=== PATIENT | female | born 2000 | race Caucasian/White ===

== ENCOUNTER 2024-09-09 21:31 | Emergency (ER) | payer BC, SELFPAY ==
[2024-09-09 21:34] VITALS: BP 128/82; PULSE 104; RESP 18; TEMP 36.7; O2SAT 98; BMI 29.8
--- NOTE | 2024-09-09 21:41 | ED.GENADULT ---
HPI - General Adult General Chief complaint: Flank Pain Stated complaint: Right side back pain Time Seen by Provider: 09/09/24 21:38 History of Present Illness HPI narrative: pt reports has been sick for couple weeks. Tonight, mild pain in back right side. Hurts worse with coughing. Tonight getting worse. Sudafed taken at home. Pain rated 8/10 24-year-old young woman presenting to the emergency department Had some low right posterior chest pain that was worse with movement beginning a few weeks ago and then has been having increasing cough which has been worsening this pain. ?I have am freaking out? ?Google says a lot of things?. Related Data Home Medications ?Medication ?Instructions ?Recorded ?Confirmed bupropion HCl 150 mg 24 hr tablet, 150 mg PO QAM 01/19/24 02/11/24 extended release citalopram 40 mg tablet 40 mg PO DAILY 01/19/24 02/11/24 propranolol 120 mg capsule,24 120 mg PO DAILY 01/19/24 02/11/24 hr,extended release Previous Rx's ?Medication ?Instructions ?Recorded lidocaine HCl 2 % mucosal solution 1 applic mucous membrane QID PRN 02/11/24 (Lidocaine Viscous) pain #100 mL Allergies Allergy/AdvReac Type Severity Reaction Status Date / Time prednisone Allergy Intermediate Facial Verified 02/11/24 09:33 swelling Review of Systems Status of ROS: Reports: 6 or more systems reviewed and unremarkable except as noted in History and below Exam Narrative: Exam Narrative: Tearful. Nasopharyngeal congestion. Otherwise appears to be breathing easily. Posterior oropharyngeal cobblestoning. Lungs are clear. Extremities are well perfused without edema. Uncomfortable with palpation at the right low anterior chest but without any evidence of injury. Abdomen is soft and nontender. Heart in elevated rate and regular rhythm without murmur rub or gallop. Const: Vital Signs, click to edit/add: Vital Signs - 24 hr 09/09/24 21:34 Temperature 98.0 F Pulse Rate [Left P ulse Oximeter] 104 H Respiratory Rate 18 Blood Pressure [Ri ght Upper Arm] 128/82 Pulse Oximetry 98 Oxygen Delivery Me thod Room Air Documenting provider has reviewed patient's vital signs: yes Course Vital Signs Vital signs: Initial Vital Signs Temperature 98.0 F 09/09/24 21:34 Temperature Source Temporal Artery Scan 09/09/24 21:34 Pulse Rate 104 H 09/09/24 21:34 Pulse Rhythm Regular 09/09/24 21:34 Respiratory Rate 18 09/09/24 21:34 Blood Pressure 128/82 09/09/24 21:34 Blood Pressure Mean 97 09/09/24 21:34 Blood Pressure Position Sitting 09/09/24 21:34 Pulse Oximetry 98 09/09/24 21:34 Oxygen Delivery Method Room Air 09/09/24 21:34 Vital Signs Temperature 98.0 F 09/09/24 21:34 Pulse Rate 104 H 09/09/24 21:34 Respiratory Rate 18 09/09/24 21:34 Blood Pressure 128/82 09/09/24 21:34 Pulse Oximetry 98 09/09/24 21:34 Oxygen Delivery Method Room Air 09/09/24 21:34 Temperature 98.0 F 09/09/24 21:34 Pulse Rate 104 H 09/09/24 21:34 Respiratory Rate 18 09/09/24 21:34 Blood Pressure 128/82 09/09/24 21:34 Pulse Oximetry 98 09/09/24 21:34 Oxygen Delivery Method Room Air 09/09/24 21:34 Medications Administered Medications: Discontinued Medications Generic Name Dose Route Start Last Admin Trade Name Freq PRN Reason Stop Dose Admin Lidocaine 1 patch 09/09/24 21:47 09/09/24 21:59 Lidocaine 5% Patch TRANSDERMA 09/09/24 21:48 1 patch ONCE ONE Administration Protocol Lorazepam 1 mg 09/09/24 21:47 09/09/24 21:59 Lorazepam 1 Mg Tablet PO 09/09/24 21:48 1 mg ONCE ONE Administration Medical Decision Making [facility] Narrative Medical decision making narrative: Anxiety really seems to be compounding apparent discomfort. Unlikely rib fracture. May have been a viral prodrome contributing to costochondritis. Has been worse since coughing some may have some intercostal strain as well. Will check for potential pneumonia as well as pneumothorax the chest x-ray. Hopefully this can be reassuring. Offering of singular dose of lorazepam for what appears to be flare of anxiety as well. Could also place lidocaine patch as a trial. Two-view chest x-ray reviewed by me looks to be WNL. No infiltrate. Normal cardiac silhouette. No apparent displaced rib fractures. Pneumothorax. Overall improved and stable over time in the emergency department. Medical Records Medical records reviewed: Yes I reviewed the patient's medical records Discharge Plan Discharge Clinical Impression: Chest wall pain, Anxiety, URI (upper respiratory infection) Additional Instructions: I am reassured somewhat by the reproducibility of your pain on physical exam. This would seem to indicate some costochondritis or chest wall strain; certainly exacerbated by coughing. You do have evidence of postnasal drip and this is likely contributing to your cough. I would continue with pseudoephedrine for drying/decongestion. I like the 12 hour formulation. This medicine can make you feel little bit on edge though and maybe amplify anxiety in some people. Consider sleeping under the mist of cool mist humidifier. For your chest pain at this point, I would take 600 mg of ibuprofen with a little bit of food 3 times daily over the next 4-5 days. Alternative to the ibuprofen would be 375 mg of naproxen twice daily over the same time period. Follow-up if not improved in a week. Be seen sooner for marked increase in chest pain particularly associated with breathing, associated fever, increasing shortness of breath. If this lidocaine patch is helpful, you can buy more [id number]. I will call you if Radiology has anything more to say about your x-ray. Activity Level: No Restrictions Discharge Diet: Regular Prescriptions: No Action bupropion HCl 150 mg tablet extended release 24 hr 150 mg PO QAM propranolol 120 mg capsule,extended release 24 hr 120 mg PO DAILY citalopram 40 mg tablet 40 mg PO DAILY lidocaine HCl [Lidocaine Viscous] 2 % solution 1 applic mucous membrane QID PRN (Reason: pain) Qty: 100 0RF Follow Up/Referrals: Provider,Not a Local [Primary Care Provider] - Stand Alone Forms: [facility] Info Instructions
--- NOTE | 2024-09-09 21:47 | CRLHL7_ITS ---
For Patients: As a result of the Century Cures Act, medical imaging exams and procedure reports are released immediately into your electronic medical record. You may view this report before your referring provider. If you have questions, please contact your health care provider. INDICATION: Posterior lateral right low chest pain, cough. TECHNIQUE: Chest 2 views. COMPARISON: None. FINDINGS: Cardiovascular and mediastinum: Heart size and vasculature are normal in caliber and appearance. Lungs and pleural spaces: Lungs are clear. No sign of infiltrate or mass. No sign of pleural effusion. No pneumothorax. Bones and soft tissues: No significant findings. IMPRESSION: No acute or significant findings. Dictated by Jak Jolley MD @ 09/09/2024 11:12:32 PM (Electronically Signed)
--- OUTSIDE RECORDS SUMMARY | 2024-09-09 21:55 | XMS_ITS | Encounter Summary ---
Author Organization [place] Address [facility] [place] [address] Care Team Providers Care Wellness Guide Name Role Phone Josephine Tompkins PA-C Primary Care Provider [phone] Josephine Tompkins PA-C Unavailable Josephine Tompkins PA-C Unavailable Mercedes Bautista PA-C Unavailable Encounter Details Date Type Department Care Team (Late st Contact Info) Description 08/24/2020 MyC Medical Advice [address] [place] [phone] Josephine Tompkins PA-C [address] [address] [place] [id number] Social History Tobacco Use Types Packs/Day Years Used Date Smoking Tobacco: Never Smokeless Tobacco: Never Alcohol Use Standard Drinks/Week Comments No 0 (1 standard drink = 0.6 oz pur e alcohol) AUDIT-C Answer Date Recorded Frequency of Alcohol Consumption Never 11/24/2018 Average Number of Drinks Not on file 019 Frequency of Binge Drinking Not on file 01/2019 PHQ-2 Answer Date Recorded PHQ-2 Score 1 02/08/2020 Sex and Gender Information Value Date Recorded Sex Assigned at Female 05/26/2022 4:21 PM CDT Gender Identity Female 05/26/2022 4:21 PM CDT Sexual Orientation Not on file documented as of this encounter Plan of Treatment Not on file documented as of this encounter Visit Diagnoses Not on filedocumented in this encounter Additional Health Concerns Assessment Noted Time PHQ-9 Depression Total Score: 10 02/07/2 020 11:08 AM CDT documented as of this encounter Care Teams Wellness Guide Relationship Specialty Start Date End Date Josephine Tompkins PA-C PCP - General Physician Telecasting Engineer 11/24/18 Josephine Tompkins PA-C [address] [place] [id number] Assigned PCP 11/03/18 05/24/21 Josephine Tompkins PA-C [address] [place] [address] Assigned PCP 05/25/21 02/11/24 Mercedes Bautista PA-C [address] [place] [address] Assigned PCP 02/12/24 documented as of this encounter
--- OUTSIDE RECORDS SUMMARY | 2024-09-09 21:55 | XMS_ITS | Encounter Summary ---
Author Organization [place] Address [facility] [place] [address] Care Team Providers Care Bit Sander Name Role Phone Josephine Tompkins PA-C Primary Care Provider [phone] Josephine Tompkins PA-C Unavailable [phone] Josephine Tompkins PA-C Unavailable [phone] Mercedes Bautista PA-C Unavailable Encounter Details Date Type Department Care Team (Late st Contact Info) Description 09/30/2020 MyC Medical Advice [address] [place] [phone] Josephine Tompkins PA-C [address] [place] [id number] Social History Tobacco Use Types Packs/Day Years [...] on file documented as of this encounter Miscellaneous Notes * Telephone Encounter - Redd Mendoza RN - 09/30/2020 2:48 PM CST Responded via [employer]. JOSE DAVID Verma, RN, PHN REPAIRER documented in this encounter Plan of Treatment Not on file documented as of this encounter Visit Diagnoses Not on filedocumented in this encounter Additional Health Concerns Assessment Noted Time PHQ-9 Depression Total Score: 9 08/30/20 20 7:03 AM CDT documented as of this encounter Care Teams Bit Sander Relationship Specialty Start Date End Date Josephine Tompkins PA-C PCP - General Physician Associate Pathologist 11/24/18 Josephine Tompkins PA-C [address] [place] [address] Assigned PCP 11/03/18 05/24/21 Josephine Tompkins PA-C [address] [place] [address] Assigned PCP 05/25/21 02/11/24 Mercedes Bautista PA-C [address] [place] [address] Assigned PCP 02/12/24 documented as of this encounter
--- OUTSIDE RECORDS SUMMARY | 2024-09-09 21:55 | XMS_ITS | Encounter Summary ---
Author Organization [place] Address [facility] [place] [address] Care Team Providers Care Departmental Buyer Name Role Phone Josephine Tompkins PA-C Primary Care Provider [phone] Josephine Tompkins PA-C Unavailable [phone] Mercedes Bautista PA-C Unavailable Reason for Visit * Reason Onset Date Comments MyChart Communication 12/01/2021 Encounter Details Date Type Department Care Team (Late st Contact Info) Description 12/01/2021 MyC Medical Advice [address] [phone] Josephine Tompkins PA-C [address] [facility] [place] [id number] MyChart Communication Social History Tobacco Use Types Packs/Day Years [...] PHQ-2 Answer Date Recorded PHQ-2 Score 1 05/15/2021 Sex and Gender Information Value Date Recorded Sex Assigned at Female 05/26/2022 4:21 PM CDT Gender Identity Female 05/26/2022 4:21 PM CDT Sexual Orientation Not on file documented as of this encounter Plan of Treatment Not on file documented as of this encounter Visit Diagnoses Diagnosis Yeast infection of the vagina- Primary Candidiasis of vulva and vagina documented in this encounter Additional Health Concerns Assessment Noted Time PHQ-9 Depression Total Score: 4 05/15/20 21 5:39 PM CDT documented as of this encounter Care Teams Departmental Buyer Relationship Specialty Start Date End Date Josephine Tompkins PA-C PCP - General Physician Sweeper Cleaner Industrial 11/24/18 Josephine Tompkins PA-C [address] [facility] [place] [address] Assigned PCP 05/25/21 02/11/24 Mercedes Bautista PA-C [address] [place] [address] Assigned PCP 02/12/24 documented as of this encounter
--- OUTSIDE RECORDS SUMMARY | 2024-09-09 21:55 | XMS_ITS | Encounter Summary ---
Author Organization [place] Address [facility] [place] [address] Care Team Providers Care Street Sweeper Operator Name Role Phone Josephine Tompkins PA-C Primary Care Provider [phone] Josephine Tompkins PA-C Unavailable [phone] Mercedes Bautista PA-C Unavailable Reason for Visit * Reason Onset Date Comments Refill Request 10/26/2023 Encounter Details Date Type Department Care Team (Late st Contact Info) Description 10/26/2023 MyC Refill [address] [phone] Josephine Tompkins PALinoC [address] [facility] [place] [id number] Refill Request Social History Tobacco Use Types Packs/Day Years Used Date Smoking Tobacco: Never Smokeless Tobacco: Never Alcohol Use Standard Drinks/Week Comments No 0 (1 standard drink = 0.6 oz pur e alcohol) AUDIT-C Answer Date Recorded Frequency of Alcohol Consumption Never 11/24/2018 Average Number of Drinks Not on file 019 Frequency of Binge Drinking Not on file 01/2019 PHQ-2 Answer Date Recorded PHQ-2 Score 4 06/23/2023 Adolescent Education Answer Date Record ed Getting School Help Needed Not on file 08/13 Sex and Gender Information Value Date Recorded Sex Assigned at Female 05/26/2022 4:21 PM CDT Gender Identity Female 05/26/2022 4:21 PM CDT Sexual Orientation Not on file documented as of this encounter Plan of Treatment Not on file documented as of this encounter Visit Diagnoses Diagnosis Other migraine without status migrainosus, not intractable JAMESON (generalized anxiety disorder) Generalized anxiety disorder documented in this encounter Additional Health Concerns Assessment Noted Time PHQ-9 Depression Total Score: 11 023 2:56 PM CDT documented as of this encounter Care Teams Street Sweeper Operator Relationship Specialty Start Date End Date Josephine Tompkins PA-C PCP - General Physician Certified Social Workers In Health Care 11/24/18 Josephine Tompkins PA-C [address] [facility] [place] [address] Assigned PCP 05/25/21 02/11/24 Mercedes Bautista PA-C [address] [place] [address] Assigned PCP 02/12/24 documented as of this encounter
--- OUTSIDE RECORDS SUMMARY | 2024-09-09 21:55 | XMS_ITS | Encounter Summary ---
Author Organization [place] Address [facility] [place] [address] Care Team Providers Care Licensed Sales Producer Name Role Phone Josephine Tompkins PA-C Primary Care Provider Josephine Tompkins PA-C Unavailable [phone] Josephine Tompkins PA-C Unavailable Mercedes Bautista PA-C Unavailable Encounter Details Date Type Department Care Team (Late st Contact Info) Description 10/16/2019 [facility] [place] [address] [phone] Josephine Tompkins PA-C [address] [facility] [address] [place] [id number] Social History Tobacco Use Types Packs/Day Years Used Date Smoking Tobacco: Never Smokeless Tobacco: Never Alcohol Use Standard Drinks/Week Comments No 0 (1 standard drink = 0.6 oz pur e alcohol) AUDIT-C Answer Date Recorded Frequency of Alcohol Consumption Never 11/24/2018 Average Number of Drinks Not on file 019 Frequency of Binge Drinking Not on file 01/2019 Sex and Gender Information Value Date Recorded Sex Assigned at Female 05/26/2022 4:21 PM CDT Gender Identity Female 05/26/2022 4:21 PM CDT Sexual Orientation Not on file documented as of this encounter Plan of Treatment Not on file documented as of this encounter Visit Diagnoses Not on filedocumented in this encounter Additional Health Concerns Assessment Noted Time PHQ-9 Depression Total Score: 4 04/03/20 19 12:02 PM CDT documented as of this encounter Care Teams Licensed Sales Producer Relationship Specialty Start Date End Date Josephine Tompkins PA-C PCP - General Physician Glazier Supervisor 11/24/18 Josephine Tompkins PA-C [address] [facility] [place] [address] Assigned PCP 11/03/18 05/24/21 Josephine Tompkins PA-C [address] [facility] [place] [address] Assigned PCP 05/25/21 02/11/24 Mercedes Bautista PA-C [address] [place] [address] Assigned PCP 02/12/24 documented as of this encounter
--- OUTSIDE RECORDS SUMMARY | 2024-09-09 21:55 | XMS_ITS | Referral Summary ---
Author Organization [place] Address [address] [place] [address] Care Team Providers Care Regional Clinical Research Associate Name Role Phone Louisa Tompkins PA-C Primary Care Provider [phone] Mercedes Bautista PA-C Unavailable Encounters Date Type Department Care Team Description 09/06/2024 Telephone [facility] [address] 3rd [place] [address] None Appointment (Online Appointment Request ) from Last 3 Months Allergies Active Allergy Reactions Criticality Noted Date Comments Banana 04/03/2019 Stomach pain Fluoxetine Other (See Comments) High 09/28/2017 Other reaction(s): Throat Swelling/Closing swelling Rash and breathing Medications Medication Sig Dispensed Refills Start Date End Date Status citalopram (CELEXA) 40 MG tabletIndications:JAMESON (generalized anxiety disorder) Take 1 tablet (40 mg) by mouth daily 90 tablet 3 12/01/2023 Active buPROPion (WELLBUTRIN XL) 150 MG 24 hr tabletIndications:JAMESON (generalized anxiety disorder),Moderate episode of recurrent major depressive disorder (H) Take 1 tablet (150 mg) by mouth every morning 90 tablet 3 12/01/2023 Active propranolol ER (INDERAL LA) 120 MG 24 hr capsuleIndications:Ot her migraine without status migrainosus, not intractable Take 1 capsule (120 mg) by mouth daily 90 capsule 3 12/01/2023 Active Active Problems Problem Noted Date Diagnosed Date Moderate persistent reactive airway disease without complication 09/27/2018 JAMESON (generalized anxiety disorder) 07/12/2018 Moderate episode of recurrent major depressive d isorder 07/12/2018 Migraine without aura and wi th status migrainosus, not intractable 09/26/2017 Dysmenorrhea 05/12/2016 Immunizations Name Administration Dates Next Due Comvax (HIB/HepB) 07/21/2000,1999,09/19/19 99 DTAP (<7y) 07/14/2011, 4,07/21/2000,01/15/2000, 1999,1999 DTaP, Unspecified 07/14/2011 HIB, Unspecified 07/21/2000,1999, 9 HepB, Unspecified 07/21/2000,1999,09/19/19 99 MMR 06/02/2004,07/21/2000 Meningococcal ACWY (Menactra??) 11/24/2018,07/14 Meningococcal ACWY (Menveo??) 07/14/2011 Meningococcal,unspecified 07/14/2011 Pneumo Conj 13-V (2010&after) 08/17/2001, 001 Pneumococcal (PCV 7) 08/17/2001,01/12/2001 Polio, Unspecified 06/02/2004,01/15/2000, 999,1999 Poliovirus, inactivated (IPV) 06/02/2004, 000,1999,1999 TDAP (Adacel,Boostrix) 08/06/2022 TDAP Vaccine (Adacel) 07/14/2011 Varicella 07/14/2011,01/12/2001 Social History Tobacco Use Types Packs/Day Years Used Date Smoking Tobacco: Never Smokeless Tobacco: Never Tobacco Cessation:Counseling Given: Not Answered Alcohol Use Standard Drinks/Week Comments No 0 (1 standard drink = 0.6 oz pur e alcohol) Social Connection and Isolat ion Panel [NHANES] Answer Date Recorded In a typical week, how many times do you talk on the phone with family, friends, or neighbors? More than three times a week 12/01/2023 How often do you get togethe r with friends or relatives? Twice a week 12/01/2023 How often do you attend chur ch or jew services? Never 12/01/2023 Do you belong to any clubs o r organizations such as hoahaoism groups, unions, fraternal or athletic groups, or school groups? No 12/01/2023 How often do you attend meet ings of the clubs or organizations you belong to? Patient declined 12/01/2023 Are you , , di vorced, , never , or living with a partner? Living with partner 12/01/2023 AUDIT-C Answer Date Recorded Q1: How often do you have a drink containing alc ohol? Monthly or less 12/01/2023 Q2: How many drinks containi ng alcohol do you have on a typical day when you are drinking? 1 or 2 12/01/2023 Q3: How often do you have si x or more drinks on one occasion? Never 12/01/2023 PHQ-2 Answer Date Recorded PHQ-2 Score 4 12/01/2023 [employer] - Occupational Stress Questionnaire Answer Date Recorded Do you feel stress - tense, restless, nervous, or anxious, or unable to sleep at night because your mind is troubled all the time - these days? Very much 12/01/2023 Exercise Vital Sign Answer Date Recorde d On average, how many days pe r week do you engage in moderate to strenuous exercise (like a brisk walk)? 1 day Minutes of Exercise per Session Not on file 12/01/2023 Adolescent Education Answer Date Record ed Getting School Help Needed Not on file 08/13 Food Insecurity Answer Date Recorded Within the past 12 months, d id you worry that your food would run out before you got money to buy more? Yes 12/01/2023 Within the past 12 months, d id the food you bought just not last and you didn? t have money to get more? Yes 12/01/2023 Housing Stability Answer Date Recorded Do you have housing? (Housin g is defined as stable permanent housing and does not include staying ouside in a car, in a tent, in an abandoned building, in an overnight assisted, or couch-surfing.) Yes 12/01/2023 Are you worried about losing your housing? No 12/01/2023 Financial Resource Strain Answer Date R ecorded Within the past 12 months, h ave you or your family members you live with been unable to get utilities (heat, electricity) when it was really needed? No 12/01/2023 Transportation Needs Answer Date Record ed Within the past 12 months, h as lack of transportation kept you from medical appointments, getting your medicines, non-medical meetings or appointments, work, or from getting things that you need? No 12/01/2023 Interpersonal Safety Answer Date Record ed Do you feel physically and e motionally safe where you currently live? Yes 12/01/2023 Within the past 12 months, h ave you been hit, slapped, kicked or otherwise physically hurt by someone? No 12/01/2023 Within the past 12 months, h ave you been humiliated or emotionally abused in other ways by your partner or ex-partner? No 12/01/2023 Sex and Gender Information Value Date Recorded Sex Assigned at Female 05/26/2022 4:21 PM CDT Gender Identity Female 05/26/2022 4:21 PM CDT Sexual Orientation Not on file Last Filed Vital Signs Vital Sign Reading Time Taken Comments Blood Pressure 117/78 12/01/2023 2:56 PM BRASS AND WIND INSTRUMENT REPAIRER Pulse 75 12/01/2023 2:56 PM BRASS AND WIND INSTRUMENT REPAIRER Temperature 36.9 ??C (98.5 ??F) 12/01/2023 2:56 PM CS T Respiratory Rate 14 12/01/2023 2:56 PM BRASS AND WIND INSTRUMENT REPAIRER Oxygen Saturation 97% 12/01/2023 2:56 PM BRASS AND WIND INSTRUMENT REPAIRER Inhaled Oxygen Concentration - - Weight 88.5 kg (195 lb) 12/01/2023 2:56 PM BRASS AND WIND INSTRUMENT REPAIRER Height 171.5 cm (5' 7.5) 12/01/2023 2:56 PM BRASS AND WIND INSTRUMENT REPAIRER Body Mass Index 30.09 12/01/2023 2:56 PM BRASS AND WIND INSTRUMENT REPAIRER Plan of Treatment Not on file Procedures Procedure Name Priority Date/Time Associated Diagnosis Comments PAP IMAGED THIN LAYER SCREEN Routine 05/15/2021 5:34 PM CDT Screening for malignant neoplasm of cervix CHLAMYDIA TRACHOMATIS PCR Routine 05/15/2021 5:30 PM CDT Screen for STD (sexually transmitted disease) from Last 3 Months or Most Recently Relevant to Health Maintenance Results * Pap imaged thin layer screen only - recommended age 21 - 24 years (05/15/2021 5:34 PM CDT) PAP NAY [place] Report Patient Name: LUKE FRANKS MR#: [id number] Specimen #: [id number] Collected: 05/15/2021 Received: 05/16/2021 Reported: 05/19/2021 11:30 Ordering Phy(s): LOUISA TOMPKINS For improved result formatting, select 'View Enhanced Report Format' under Linked Documents section. SPECIMEN/STAIN PROCESS: Pap imaged thin layer prep screening (Surepath, FocalPoint with guided screening) ? Pap-Cyto x 1 SOURCE: Cervical, endocervical Pap imaged thin layer prep screening (Surepath, FocalPoint with guided screening) SPECIMEN ADEQUACY: Satisfactory for evaluation. -Transformation zone component absent. CYTOLOGIC INTERPRETATION: Negative for intraepithelial lesion or malignancy Electronically signed out by: RONNY Montoya (ASCP) CLINICAL HISTORY: LMP: 05/01/2021 Papanicolaou Test Limitations: ??Cervical cytology is a screening test with limited sensitivity; regular screening is critical for cancer prevention; Pap tests are primarily effective for the diagnosis/preventi on of squamous cell carcinoma, not adenocarcinomas or other cancers. COLLECTION SITE: Client: ??[facility] Location: [facility] (P) The technical component of this [facility], with the professional component performed at [facility], [address] [place] [phone] ([phone]) MARJAN Cytology 05/15/2021 5:34 PM CDT 05/16/2021 8:43 AM CDT Louisa Tompkins PA-C LAB - [facility] SPECIMEN COPATH * CHLAMYDIA TRACHOMATIS PCR (05/15/2021 5:30 PM CDT) Specimen Description Cervix 05/15/2021 5:52 PM CDT [facility] Chlamydia Trachomatis PCR Negative NEG^Negat radhames 05/16/2021 10:20 AM CDT [facility] Comment: Negative for C. trachomatis rRNA by sandblast or shotblast equipment tender mediated amplification. A negative result by sandblast or shotblast equipment tender mediated amplification does not preclude the presence of C. trachomatis infection because results are dependent on proper and adequate collection, absence of inhibitors, and sufficient rRNA to be detected. Specimen from uterine cervix (specimen) 05/15/2021 5:30 PM CDT 05/15/2021 5:52 PM CDT Louisa Tompkins PA-C LAB - MICRO GENERAL ORDERABLES Performing Organization Address City/[facility]/ZIP Co de Phone Number [facility] [address] [place] [address], [address] [place] [address] [phone] from Last 3 Months or Most Recently Relevant to Health Maintenance Care Teams Regional Clinical Research Associate Relationship Specialty Start Date End Date Louisa Tompkins PA-C PCP - General Physician Spiral Winder 11/24/18 Mercedes Bautista PA-C [address] [place] [address] Assigned PCP 02/12/24
--- OUTSIDE RECORDS SUMMARY | 2024-09-09 21:55 | XMS_ITS | Encounter Summary ---
Author Organization [place] Address [facility] [place] [address] Care Team Providers Care Electric Power Superintendent Name Role Phone Josephine Tompkins PA-C Primary Care Provider Josephine Tompkins PA-C Unavailable Josephine Tompkins PA-C Unavailable Mercedes Bautista PA-C Unavailable Encounter Details Date Type Department Care Team (Late st Contact Info) Description 05/08/2020 [facility] Medical Advice [address] [address] Josephine Tompkins PALinoC [address] [facility] [address] [place] [id number] Social History Tobacco Use Types Packs/Day Years [...] Noted Time PHQ-9 Depression Total Score: 10 02/07/ 020 11:08 AM CDT documented as of this encounter Care Teams Electric Power Superintendent Relationship Specialty Start Date End Date Josephine Tompkins PA-C PCP - General Physician Dry Clipper Tender 11/24/18 Josephine Tompkins PA-C [address] [facility] [place] [address] Assigned PCP 11/03/18 05/24/21 Josephine Tompkins PA-C [address] [facility] [place] [address] Assigned PCP 05/25/21 02/11/24 Mercedes Bautista PA-C [address] [place] [address] Assigned PCP 02/12/24 documented as of this encounter
--- OUTSIDE RECORDS SUMMARY | 2024-09-09 21:55 | XMS_ITS | Encounter Summary ---
Author Organization [place] Address [facility] [place] [address] Care Team Providers Care Calculus Tutor Name Role Phone Josephine Tompkins PA-C Primary Care Provider Josephine Tompkins PA-C Unavailable Josephine Tompkins PA-C Unavailable [phone] Mercedes Bautista PA-C Unavailable Encounter Details Date Type Department Care Team (Late st Contact Info) Description 10/01/2019 [facility] Medical Advice [address] [address] Josephine Tompkins PA-C [address] [facility] [place] [phone] JAMESON (generalized anxiety disorder) Social History Tobacco Use Types Packs/Day Years [...] as of this encounter Visit Diagnoses Diagnosis JAMESON (generalized anxiety disorder) Generalized anxiety disorder documented in this encounter Additional Health Concerns Assessment Noted Time PHQ-9 Depression Total Score: 4 04/03/20 19 12:02 PM CDT documented as of this encounter Care Teams Calculus Tutor Relationship Specialty Start Date End Date Josephine Tompkins PA-C PCP - General Physician Piercing Machine Operator 11/24/18 Josephine Tompkins PA-C [address] [place], [place] [id number] Assigned PCP 11/03/18 05/24/21 Josephine Tompkins PA-C [address] [facility] [place] [address] Assigned PCP 05/25/21 02/11/24 Mercedes Bautista PA-C [address] [place] [address] Assigned PCP 02/12/24 documented as of this encounter
--- OUTSIDE RECORDS SUMMARY | 2024-09-09 21:55 | XMS_ITS | Encounter Summary ---
Author Organization [place] Address [facility] [place] [address] Care Team Providers Care Environmental Studies Professor Name Role Phone Josephine Tompkins PA-C Primary Care Provider Josepihne Tompkins PA-C Unavailable Josephine Tompkins PA-C Unavailable [phone] Mercedes Bautista PA-C Unavailable Encounter Details Date Type Department Care Team (Late st Contact Info) Description 09/30/2020 [facility] Medical Advice [address] [place] [phone] Josephine Tompkins PA-C [address] [facility] [address] [place] [phone] Yeast infection of the vagina (Primary Dx) Social History Tobacco Use Types Packs/Day Years [...] documented as of this encounter Care Teams Environmental Studies Professor Relationship Specialty Start Date End Date Josephine Tompkins PA-C PCP - General Physician Clarifier Operator 11/24/18 Josephine Tompkins PA-C [address] [facility] [place] [address] Assigned PCP 11/03/18 05/24/21 Josephine Tompkins PA-C [address] [facility] [place] [address] Assigned PCP 05/25/21 02/11/24 Mercedes Bautista PA-C [address] [place] [address] Assigned PCP 02/12/24 documented as of this encounter
--- OUTSIDE RECORDS SUMMARY | 2024-09-09 21:55 | XMS_ITS | Encounter Summary ---
Author Organization [place] Address [facility] [place] [address] Care Team Providers Care Machined Parts Metal Sprayer Name Role Phone Josephine Tompkins PA-C Primary Care Provider Josephine Tompkins PA-C Unavailable Mercedes Bautista PA-C Unavailable Encounter Details Date Type Department Care Team (Late st Contact Info) Description 09/19/2021 [facility] Medical Advice [address] [address] Josephine Tompkins PA-C [address] [facility] [place] [phone] Social History Tobacco Use Types Packs/Day Years [...] documented as of this encounter Care Teams Machined Parts Metal Sprayer Relationship Specialty Start Date End Date Josephine Tompkins PA-C PCP - General Physician Egg Processor 11/24/18 Josephine Tompkins PA-C [address] [facility] [place] [address] Assigned PCP 05/25/21 02/11/24 Mercedes Bautista PA-C [address] [place] [address] Assigned PCP 02/12/24 documented as of this encounter
--- OUTSIDE RECORDS SUMMARY | 2024-09-09 21:55 | XMS_ITS | Encounter Summary ---
Author Organization [place] Address [facility]0 [place] [address] Care Team Providers Care Paying Teller Name Role Phone Josephine Tompkins PA-C Primary Care Provider Josephine Tompkins PA-C Unavailable Mercedes Bautista PA-C Unavailable Encounter Details Date Type Department Care Team (Late st Contact Info) Description 02/19/2022 My[facility] Medical Advice [address] [address] Josephine Tompkins PA-C 9 [facility] [place] [phone] Social History Tobacco Use Types Packs/Day Years [...] documented as of this encounter Care Teams Paying Teller Relationship Specialty Start Date End Date Josephine Tompkins PA-C PCP - General Physician Crib Pad Maker 11/24/18 Josephine Topmkins PA-C [address] [facility] [place] [address] Assigned PCP 05/25/21 02/11/24 Mercedes Bautista PA-C [address] [place] [address] Assigned PCP 02/12/24 documented as of this encounter
--- OUTSIDE RECORDS SUMMARY | 2024-09-09 21:55 | XMS_ITS | Encounter Summary ---
Author Organization [place] Address Replaced by [facility] [place] [address] Care Team Providers Care Filling Separator Name Role Phone Josephine Tompkins PA-C Primary Care Provider Josephine Tompkins PA-C Unavailable [phone] Josephine Tompkins PA-C Unavailable Mercedes Bautista PA-C Unavailable Encounter Details Date Type Department Care Team (Late st Contact Info) Description 11/05/2019 [facility] [place] [address] [address] Josephine Tompkins PA-C [address] [facility] [address] [place] [phone] Social History Tobacco Use Types Packs/Day Years [...] documented as of this encounter Care Teams Filling Separator Relationship Specialty Start Date End Date Josephine Tompkins PA-C PCP - General Physician Panel Installer 11/24/18 Josephine Tompkins PA-C [address] [facility] [place] [address] Assigned PCP 11/03/18 05/24/21 Josephine Tompkins PA-C [address] [facility] [place] [address] Assigned PCP 05/25/21 02/11/24 Mercedes Bautista PA-C [address] [place] [address] Assigned PCP 02/12/24 documented as of this encounter
--- OUTSIDE RECORDS SUMMARY | 2024-09-09 21:55 | XMS_ITS | Encounter Summary ---
Author Organization [place] Address [facility] [place] [place] [address] Care Team Providers Care Insurance Processing Clerk Name Role Phone Josephine Tompkins PA-C Primary Care Provider Josephine Tompkins PA-C Unavailable Mercedes Bautista PA-C Unavailable Encounter Details Date Type Department Care Team (Late st Contact Info) Description 05/06/2023 My[facility] Medical Advice [address] [address] Josephine Tompkins PA-C 9 [facility] [place] [phone] Social History Tobacco Use Types Packs/Day Years Used Date Smoking Tobacco: Never Smokeless Tobacco: Never Alcohol Use Standard Drinks/Week Comments No 0 (1 standard drink = 0.6 oz pur e alcohol) AUDIT-C Answer Date Recorded Frequency of Alcohol Consumption Never 11/24/2018 Average Number of Drinks Not on file 019 Frequency of Binge Drinking Not on file 01/2019 PHQ-2 Answer Date Recorded PHQ-2 Score 2 12/08/2022 Sex and Gender Information Value Date Recorded Sex Assigned at Female 05/26/2022 4:21 PM CDT Gender Identity Female 05/26/2022 4:21 PM CDT Sexual Orientation Not on file documented as of this encounter Plan of Treatment Not on file documented as of this encounter Visit Diagnoses Not on filedocumented in this encounter Additional Health Concerns Assessment Noted Time PHQ-9 Depression Total Score: 10 023 1:15 PM RN SUPPORT SERVICES documented as of this encounter Care Teams Insurance Processing Clerk Relationship Specialty Start Date End Date Josephine Tompkins PA-C PCP - General Physician Glazier Metal Furniture 11/24/18 Josephine Tompkins PA-C [address] [facility] [place] [address] Assigned PCP 05/25/21 02/11/24 Mercedes Bautista PA-C [address] [place] [address] Assigned PCP 02/12/24 documented as of this encounter
--- OUTSIDE RECORDS SUMMARY | 2024-09-09 21:55 | XMS_ITS | Encounter Summary ---
Author Organization [place] Address [facility]0 [facility] [place] [address] Care Team Providers Care Senior Application Security Consultant Name Role Phone Josephine Tompkins PA-C Primary Care Provider [phone] Josephine Tompkins PA-C Unavailable Mercedes Bautista PA-C Unavailable Encounter Details Date Type Department Care Team (Late st Contact Info) Description 09/07/2021 [facility] Medical Advice [address] [address] Josephine Tompkins PA-C 9 [facility] [place] [phone] Social History Tobacco Use Types Packs/Day Years [...] documented as of this encounter Care Teams Senior Application Security Consultant Relationship Specialty Start Date End Date Josephine Tompkins PA-C PCP - General Physician Bar Catcher 11/24/18 Josephine Tompkins PA-C [address] [facility] [place] [address] Assigned PCP 05/25/21 02/11/24 Mercedes Bautista PA-C [address] [place] [address] Assigned PCP 02/12/24 documented as of this encounter
--- OUTSIDE RECORDS SUMMARY | 2024-09-09 21:55 | XMS_ITS | Encounter Summary ---
Author Organization [place] Address [facility] [place] [address] Care Team Providers Care Galley Worker Name Role Phone Josephine Tompkins PA-C Primary Care Provider [phone] Josephine Tompkins PA-C Unavailable Mercedes Bautista PA-C Unavailable Reason for Visit * Reason Onset Date Comments MyChart Communication 10/02/2021 Encounter Details Date Type Department Care Team (Late st Contact Info) Description 10/02/2021 [facility] Medical Advice [address] [phone] Josephine Tompkins PA-C 9 [facility] [place] [phone] MyChart Communication Social History Tobacco Use Types [...] documented as of this encounter Care Teams Galley Worker Relationship Specialty Start Date End Date Josephine Tompkins PA-C PCP - General Physician Staff Radiographer 11/24/18 Josephine Tompkins PA-C [address] [facility] [place] [address] Assigned PCP 05/25/21 02/11/24 Mercedes Bautista PA-C [address] [place] [address] Assigned PCP 02/12/24 documented as of this encounter
--- OUTSIDE RECORDS SUMMARY | 2024-09-09 21:55 | XMS_ITS | Encounter Summary ---
Author Organization [place] Address [facility]0 [facility] [place] [address] Care Team Providers Care Metal Casket Assembler Name Role Phone Josephine Tompkins PA-C Primary Care Provider [phone] Josephine Tompkins PA-C Unavailable [phone] Mercedes Bautista PA-C Unavailable Encounter Details Date Type Department Care Team (Late st Contact Info) Description 10/22/2023 [facility] [place] [address] [address] Kalee Robert, [facility] Social History Tobacco Use Types Packs/Day Years [...] documented as of this encounter Care Teams Metal Casket Assembler Relationship Specialty Start Date End Date Josephine Tompkins PA-C PCP - General Physician Music Industry Internship 11/24/18 Josephine Tompkins PA-C [address] [facility] [place] [address] Assigned PCP 05/25/21 02/11/24 Mercedes Bautista PA-C [address] [place] [address] Assigned PCP 02/12/24 documented as of this encounter
--- OUTSIDE RECORDS SUMMARY | 2024-09-09 21:55 | XMS_ITS | Encounter Summary ---
Author Organization [place] Address [facility] [place] [address] Care Team Providers Care Rn Resource Nurse Name Role Phone Josephine Tompkins PA-C Primary Care Provider Josephine Tompkins PA-C Unavailable Mercedes Bautista PA-C Unavailable Reason for Visit * Reason Onset Date Comments MyChart Communication 06/24/2021 Symptoms Encounter Details Date Type Department Care Team (Late st Contact Info) Description 06/24/2021 My[facility] Medical Advice [address] [address] Josephine Tompkins PA-C [address] [place] [address] [place] [phone] MyChart Communication (Symptoms) Social History Tobacco Use Types Packs/Day Years [...] documented as of this encounter Care Teams Rn Resource Nurse Relationship Specialty Start Date End Date Josephine Tompkins PA-C PCP - General Physician Cookie Padder 11/24/18 Josephine Tompkins PA-C [address] [facility] [place] [address] Assigned PCP 05/25/21 02/11/24 Mercedes Bautista PA-C [address] [place] [address] Assigned PCP 02/12/24 documented as of this encounter
--- OUTSIDE RECORDS SUMMARY | 2024-09-09 21:55 | XMS_ITS | Encounter Summary ---
Author Organization [place] Address [facility] [place] [address] Care Team Providers Care Automation Operator Name Role Phone Josephine Tompkins PA-C Primary Care Provider Josephine Tompkins PA-C Unavailable [phone] Mercedes Bautista PA-C Unavailable Reason for Visit * Reason Onset Date Comments MyChart Communication 10/16/2022 Encounter Details Date Type Department Care Team (Late st Contact Info) Description 10/16/2022 MyC Medical Advice [address] [address] Josephine Tompkins PA-C 9 [facility] [place] [phone] MyChart Communication Social History Tobacco Use Types [...] PHQ-2 Answer Date Recorded PHQ-2 Score 4 08/06/2022 Sex and Gender Information Value Date Recorded Sex Assigned at Female 05/26/2022 4:21 PM CDT Gender Identity Female 05/26/2022 4:21 PM CDT Sexual Orientation Not on file documented as of this encounter Plan of Treatment Not on file documented as of this encounter Visit Diagnoses Not on filedocumented in this encounter Additional Health Concerns Assessment Noted Time PHQ-9 Depression Total Score: 12 08/06/ 022 4:40 PM CDT documented as of this encounter Care Teams Automation Operator Relationship Specialty Start Date End Date Josephine Tompkins PA-C PCP - General Physician Plaster Lather 11/24/18 Josephine Tompkins PA-C 919 [facility] [place] [address] Assigned PCP 05/25/21 02/11/24 Mercedes Bautista PA-C [address] [place] [address] Assigned PCP 02/12/24 documented as of this encounter
--- OUTSIDE RECORDS SUMMARY | 2024-09-09 21:55 | XMS_ITS | Encounter Summary ---
Author Organization [place] Address [facility] [place] [address] Care Team Providers Care Services Account Manager Name Role Phone Josephine Tompkins PA-C Primary Care Provider [phone] Josephine Tompkins PA-C Unavailable Josephine Tompkins PA-C Unavailable Mercedes Bautista PA-C Unavailable Encounter Details Date Type Department Care Team (Late st Contact Info) Description 10/08/2019 MyC Medical Advice [address] [address] Josephine Tompkins PA-C [address] [facility] [address] [place] [id number] Trichotillomania (Primary Dx); Other migraine without status migrainosus, not intractable Social History Tobacco Use Types Packs/Day Years [...] as of this encounter Visit Diagnoses Diagnosis Trichotillomania- Primary Other disorder of impulse control Other migraine without status migrainosus, not intractable documented in this encounter Additional Health Concerns Assessment Noted Time PHQ-9 Depression Total Score: 4 04/03/20 19 12:02 PM CDT documented as of this encounter Care Teams Services Account Manager Relationship Specialty Start Date End Date Josephine Tompkins PA-C PCP - General Physician License And Permit Specialist 11/24/18 Josephine Tompkins PA-C [address] [facility] [place] [address] Assigned PCP 11/03/18 05/24/21 Josephine Tompkins PA-C [address] [facility] [place] [address] Assigned PCP 05/25/21 02/11/24 Mercedes Bautista PA-C [address] [place] [address] Assigned PCP 02/12/24 documented as of this encounter
--- OUTSIDE RECORDS SUMMARY | 2024-09-09 21:55 | XMS_ITS | Clinical Summary ---
Author Organization [place] Address [facility] [place] [address] Care Team Providers Care Ammonia Nitrate Operator Name Role Phone Josephine Tompkins PA-C Primary Care Provider [phone] Mercedes Bautista PA-C Unavailable Allergies Active Allergy Reactions Criticality Noted Date [...] status migrainosus, not intractable 09/26/2017 Dysmenorrhea 05/12/2016 Encounters Date Type Department Care Team Description 09/06/2024 Telephone [facility] [address] 3rd [place] [address] None Appointment (Online Appointment Request ) from Last 3 Months Immunizations Name Administration Dates Next Due Comvax [...] often do you attend chur ch or yazidi services? Never 12/01/2023 Do you belong to any clubs o r organizations such as restorationism groups, unions, fraternal or athletic groups, or [...] Answer Date Recorded PHQ-2 Score 4 12/01/2023 [facility] - Occupational Stress [...] in an abandoned building, in an overnight chcf, or couch-surfing.) Yes 12/01/2023 Are you worried [...] Comments Blood Pressure 117/78 12/01/2023 2:56 PM MASTICATOR Pulse 75 12/01/2023 2:56 PM MASTICATOR Temperature 36.9 ??C (98.5 ??F) 12/01/2023 2:56 PM CS T Respiratory Rate 14 12/01/2023 2:56 PM MASTICATOR Oxygen Saturation 97% 12/01/2023 2:56 PM MASTICATOR Inhaled Oxygen Concentration - - Weight 88.5 kg (195 lb) 12/01/2023 2:56 PM MASTICATOR Height 171.5 cm (5' 7.5) 12/01/2023 2:56 PM MASTICATOR Body Mass Index 30.09 12/01/2023 2:56 PM MASTICATOR Plan of Treatment Health Maintenance Due Date Last Done Comments Pneumococcal Vaccine: Pediatrics (0 to 5 Years) and At-Risk Patients (6 to 64 Years) (1 of 1 - PPSV23 or PCV20) 2005 08/17/2001, 08/17/2001, 01/12/2001, Additional history exists HPV IMMUNIZATION (1 - 3-dose series) 2014 HEPATITIS C SCREENING 2017 ASTHMA ACTION PLAN 08/06/2023 08/06/2022 PAP 05/15/2024 05/15/2021 ASTHMA CONTROL TEST 05/31/2024 12/01/2023, 06/23/2023, 08/06/2022, Additional history exists PHQ-9 05/31/2024 12/01/2023, 08/0 12/2022, 12/08/2022, Additional history exists COVID-19 Vaccine ( season) 2024 INFLUENZA VACCINE (#1) 2024 9 (Declined), 11/24/2018 (Declined) ANNUAL REVIEW OF HM ORDERS 12/01/2024 12/01/2023, YEARLY PREVENTIVE VISIT 12/01/2024 12/01/19, 08/06/2022, 05/15/2021, Additional history exists ADVANCE CARE PLANNING 05/18/2026 05/18/2021, 021 DTAP/TDAP/TD IMMUNIZATION (10 - Td or Tdap) 08/06/2032 08/06/2022, 07/14/2011, 07/14/2011, Additional history exists RSV VACCINE (1 - 1-dose 75+ series) 2074 HEPATITIS B IMMUNIZATION Completed 000, 07/21/2000, 1999, Additional history exists DEPRESSION ACTION PLAN Completed 11/24/2018 HIV SCREENING Addressed 11/24/2018 (Declined) Overr idden with the intention of not completing the topic MENINGITIS IMMUNIZATION Aged Out 11/24/19, 11/24/2018, 07/14/2011, Additional history exists No longer eligible based on patient's age to complete this topic CHLAMYDIA SCREENING Discontinued 05/15/2021, 11/24/2018 (Declined) RSV MONOCLONAL ANTIBODY Aged Out No l onger eligible based on patient's age to complete this topic Procedures Procedure Name Priority Date/Time Associated Diagnosis [...] Degroot Report Patient Name: LUKE FRANKS MR#: [id number] Specimen #: [id number] Collected: 05/15/2021 Received: 05/16/2021 Reported: 05/19/2021 11:30 Ordering Phy(s): JOSEPHINE TOMPKINS For improved result formatting, select 'View [...] adenocarcinomas or other cancers. COLLECTION SITE: Client: ??[facility] Location: [facility] (P) The technical component of this testing was completed at the [facility], with the professional component performed at the [facility], [address] [place] [phone] ([phone]) MARJAN Cytology 05/15/2021 5:34 PM CDT 05/16/2021 8:43 AM CDT Josephine Tompkins PA-C LAB - [facility] SPECIMEN COPATH * CHLAMYDIA TRACHOMATIS PCR (05/15/2021 5:30 PM CDT) Specimen Description Cervix 05/15/2021 5:52 PM CDT [facility] Chlamydia Trachomatis PCR Negative NEG^Negat radhames 05/16/2021 10:20 AM CDT [facility], [facility] Comment: Negative for C. trachomatis rRNA by principal administrative clerk mediated amplification. A negative result by principal administrative clerk mediated amplification does not preclude the presence of C. trachomatis infection because results are dependent on proper and adequate collection, absence of inhibitors, and sufficient rRNA to be detected. Specimen from uterine cervix (specimen) 05/15/2021 5:30 PM CDT 05/15/2021 5:52 PM CDT Josephine Tompkins PA-C LAB - MICRO GENERAL ORDERABLES [facility], [facility] [address] [place] [address], [address] [place] [address], [facility] [phone] from Last 3 Months or Most Recently Relevant to Health Maintenance Care Teams Ammonia Nitrate Operator Relationship Specialty Start Date End Date Josephine Tompkins PA-C PCP - General Physician Petrophysicist 1/3/19 Mercedes Bautista PA-C [address] [place] [address] Assigned PCP 02/12/24
--- OUTSIDE RECORDS SUMMARY | 2024-09-09 21:55 | XMS_ITS | Encounter Summary ---
Author Organization [place] Address [facility] [place] [address] Care Team Providers Care Tray Delivery Aide Name Role Phone Josephine Tompkins PA-C Primary Care Provider Josephine Tompkins PA-C Unavailable [phone] Mercedes Bautista PA-C Unavailable Reason for Visit * Reason Onset Date Comments MyChart Communication 05/26/2022 Encounter Details Date Type Department Care Team (Late st Contact Info) Description 05/26/2022 MyC Medical Advice [address] [place] [address] [address] Josephine Tompkins PA-C 9 [facility] [place] [phone] MyChart Communication Social History Tobacco Use Types [...] documented as of this encounter Care Teams Tray Delivery Aide Relationship Specialty Start Date End Date Josephine Tompkins PA-C PCP - General Physician Technical Illustrations Map Inker 11/24/18 Josephine Tompkins PA-C 919 [facility] [place] [address] Assigned PCP 05/25/21 02/11/24 Mercedes Bautista PA-C [address] [place] [address] Assigned PCP 02/12/24 documented as of this encounter
--- OUTSIDE RECORDS SUMMARY | 2024-09-09 21:55 | XMS_ITS | Encounter Summary ---
Author Organization [place] Address [facility] [place] [address] Care Team Providers Care Black Oxide Operator Name Role Phone Josephine Tompkins PA-C Primary Care Provider Josephine Tompkins PA-C Unavailable Mercedes Bautista PA-C Unavailable Reason for Visit * Reason Onset Date Comments MyChart Communication 10/20/2021 Encounter Details Date Type Department Care Team (Late st Contact Info) Description 10/20/2021 MyC Medical Advice [address] [phone] Josephine Tompkins PA-C 9 [facility] [place] [phone] MyChart Communication Social History Tobacco Use Types [...] as of this encounter Visit Diagnoses Diagnosis Toe infection- Primary Unspecified local infection of skin and subcutaneous tissue documented in this encounter Additional Health Concerns Assessment Noted Time PHQ-9 Depression Total Score: 4 05/15/20 21 5:39 PM CDT documented as of this encounter Care Teams Black Oxide Operator Relationship Specialty Start Date End Date Josephine Tompkins PA-C PCP - General Physician Paper Maker 11/24/18 Josephine Tompkins PA-C 919 [facility] [place] [address] Assigned PCP 05/25/21 02/11/24 Mercedes Bautista PA-C [address] [place] [address] Assigned PCP 02/12/24 documented as of this encounter
--- OUTSIDE RECORDS SUMMARY | 2024-09-09 21:55 | XMS_ITS | Encounter Summary ---
Author Organization [place] Address [facility] [place] [address] Care Team Providers Care Director Emergency Name Role Phone Josephine Tompkins PA-C Primary Care Provider [phone] Josephine Tompkins PA-C Unavailable [phone] Mercedes Bautista PA-C Unavailable Encounter Details Date Type Department Care Team (Late st Contact Info) Description 12/08/2022 [facility] [address] [address] Kalee Robert, [facility] Social History Tobacco Use Types Packs/Day [...] Depression Total Score: 10 023 1:15 PM DIRECTOR REGULATORY AFFAIRS documented as of this encounter Care Teams Director Emergency Relationship Specialty Start Date End Date Josephine Tompkins PA-C PCP - General Physician Polls Or Surveys Interviewer 11/24/18 Josephine Tompkins PA-C [address] [facility] [place] [address] Assigned PCP 05/25/21 02/11/24 Mercedes Bautista PA-C [address] [place] [address] Assigned PCP 02/12/24 documented as of this encounter
--- OUTSIDE RECORDS SUMMARY | 2024-09-09 21:55 | XMS_ITS | Encounter Summary ---
Author Organization [place] Address [facility] [place] [address] Care Team Providers Care Clinical Medical Assistant Name Role Phone Josephine Tompkins PA-C Primary Care Provider Josephine Tompkins PA-C Unavailable [phone] Josephine Tompkins PA-C Unavailable Mercedes Bautista PA-C Unavailable Encounter Details Date Type Department Care Team (Late st Contact Info) Description 06/15/2020 MyC Medical Advice [address] [address] Josephine Tompkins PALinoC [address] [facility] [address] [place] [phone] JAMESON (generalized anxiety disorder) (Primary Dx) Social History Tobacco Use Types [...] encounter Visit Diagnoses Diagnosis JAMESON (generalized anxiety disorder)- Primary Generalized anxiety disorder documented in this encounter Additional Health Concerns Assessment Noted Time PHQ-9 Depression Total Score: 10 020 11:08 AM CDT documented as of this encounter Care Teams Clinical Medical Assistant Relationship Specialty Start Date End Date Josephine Tompkins PA-C PCP - General Physician Exterior Interior Specialist 11/24/18 Josephine Tompkins PA-C [address] [facility] [place] [address] Assigned PCP 11/03/18 05/24/21 Josephine Tompkins PA-C [address] [facility] [place] [address] Assigned PCP 05/25/21 02/11/24 Mercedes Bautista PA-C [address] [place] [address] Assigned PCP 02/12/24 documented as of this encounter
--- OUTSIDE RECORDS SUMMARY | 2024-09-09 21:55 | XMS_ITS | Encounter Summary ---
Author Organization [place] Address [facility] [place] [address] Care Team Providers Care Supervisor Tree Trimming Name Role Phone Josephine Tompkins PA-C Primary Care Provider [phone] Mercedes Bautista PA-C Unavailable Reason for Visit * Reason Onset Date Comments Appointment 09/06/2024 Online Appointme nt Request Encounter Details Date Type Department Care Team (Late st Contact Info) Description 09/06/2024 Telephone [facility] Neurology Clinic [address] [place] [address] None Appointment (Online Appointment Request ) Social History Tobacco Use Types Packs/Day Years [...] often do you attend chur ch or protestant services? Never 12/01/2023 Do you belong to any clubs o r organizations such as latter day groups, unions, fraternal or athletic groups, or [...] Date Recorded PHQ-2 Score 4 12/01/2023 [facility] - Occupational Stress [...] Answer Date Recorded Do you have housing? (Chuck g is defined as stable permanent housing [...] encounter Miscellaneous Notes * Telephone Encounter - Melvi Hansen - 09/06/2024 3:18 PM CDT LVM for patient regarding online appointment request submitted on Wednesday09/05/24 at 2:17 pm. Referral is needed Generic message left, patient may need a referral before scheduling per specialty protocols. documented in this encounter Plan of Treatment Not on file documented as of this encounter Visit Diagnoses Not on filedocumented in this encounter Additional Health Concerns Assessment Noted Time PHQ-9 Depression Total Score: 12 024 2:41 PM BRANCH EXAMINER documented as of this encounter Care Teams Supervisor Tree Trimming Relationship Specialty Start Date End Date Josephine Tompkins PA-C PCP - General Physician Dispatch Manager 11/24/18 Mercedes Bautista PA-C [address] [place] [address] Assigned PCP 02/12/24 documented as of this encounter
--- OUTSIDE RECORDS SUMMARY | 2024-09-09 21:55 | XMS_ITS | Encounter Summary ---
Author Organization [place] Address [facility] [place] [address] Care Team Providers Care Floor Steward/Stewardess Name Role Phone Josephine Tompkins PA-C Primary Care Provider Josephine Tompkins PA-C Unavailable [phone] Mercedes Bautista PA-C Unavailable Encounter Details Date Type Department Care Team (Late st Contact Info) Description 06/02/2021 MyC Medical Advice [address] [address] Josephine Tompkins PA-C [address] [place] [phone] Social History Tobacco Use Types Packs/Day Years [...] PM CDT Sexual Orientation Not on file COVID-19 Exposure Response Date Recorded In the last month, have you been in contact with someone who was confirmed or suspected to have Coronavirus / COVID-19? No / Unsure 05/15/2021 4:53 PM CDT documented as of this encounter Plan of Treatment Not on file documented as of this encounter Visit Diagnoses Not on filedocumented in this encounter Additional Health Concerns Assessment Noted Time PHQ-9 Depression Total Score: 4 05/15/20 21 5:39 PM CDT documented as of this encounter Care Teams Floor Steward/Stewardess Relationship Specialty Start Date End Date Josephine Tompkins PA-C PCP - General Physician Garden Machinery Mechanic 11/24/18 Josephine Tompkins PA-C [address] [facility] [place] [address] Assigned PCP 05/25/21 02/11/24 Mercedes Bautista PA-C [address] [place] [address] Assigned PCP 02/12/24 documented as of this encounter
--- OUTSIDE RECORDS SUMMARY | 2024-09-09 21:55 | XMS_ITS | Encounter Summary ---
Author Organization [place] Address [facility] [place] [address] Care Team Providers Care System Consultant Name Role Phone Josephine Tompkins PA-C Primary Care Provider Josephine Tompkins PA-C Unavailable Josephine Tompkins PA-C Unavailable Mercedes Bautista PA-C Unavailable Reason for Visit * Reason Onset Date Comments MyChart Communication 01/15/2021 Encounter Details Date Type Department Care Team (Late st Contact Info) Description 01/15/2021 MyC Medical Advice [address] [phone] Josephine Tompkins PALinoC [address] [place] [address] [address] [place] [address] MyChart Communication Social History Tobacco Use Types [...] documented as of this encounter Care Teams System Consultant Relationship Specialty Start Date End Date Josephine Tompkins PA-C PCP - General Physician Military Aircraft Designer 11/24/18 Josephine Tompkins PA-C [address] [facility] [place] [address] Assigned PCP 11/03/18 05/24/21 Josephine Tompkins PA-C [address] [facility] [place] [address] Assigned PCP 05/25/21 02/11/24 Mercedes Bautista PA-C [address] [place] [address] Assigned PCP 02/12/24 documented as of this encounter
--- OUTSIDE RECORDS SUMMARY | 2024-09-09 21:55 | XMS_ITS | Encounter Summary ---
Author Organization [place] Address [facility] [place] [address] Care Team Providers Care Still Operator Gin Name Role Phone Josephine Tompkins PA-C Primary Care Provider Josephine Tompkins PA-C Unavailable Josephine Tompkins PA-C Unavailable Mercedes Bautista PA-C Unavailable Encounter Details Date Type Department Care Team (Late st Contact Info) Description 04/29/2021 MyC Medical Advice [address] [phone] Josephine Tompkins PA-C [address] [facility] [address] [place] [phone] Uses control Social History Tobacco Use Types Packs/Day Years [...] as of this encounter Visit Diagnoses Diagnosis Uses control documented in this encounter Additional Health Concerns Assessment Noted Time PHQ-9 Depression Total Score: 9 08/30/20 20 7:03 AM CDT documented as of this encounter Care Teams Still Operator Gin Relationship Specialty Start Date End Date Josephine Tompkins PA-C PCP - General Physician Electro Plater 11/24/18 Josephine Tompkins PA-C [address] [facility] [place] [address] Assigned PCP 11/03/18 05/24/21 Josephine Tompkins PA-C [address] [facility] [place] [address] Assigned PCP 05/25/21 02/11/24 Mercedes Bautista PA-C [address] [place] [address] Assigned PCP 02/12/24 documented as of this encounter
--- OUTSIDE RECORDS SUMMARY | 2024-09-09 21:56 | XMS_ITS | Encounter Summary ---
Author Organization [place] Address [facility] [place] [address] Care Team Providers Care Geriatric Social Worker Name Role Phone Josephine Tompkins PA-C Primary Care Provider Josephine Tompkins PA-C Unavailable Josephine Tompkins PA-C Unavailable Mercedes Bautista PA-C Unavailable Encounter Details Date Type Department Care Team (Late st Contact Info) Description 08/31/2019 [facility] [address] [address] Josephine Tompkins PA-C [address] [facility] [address] [place] [phone] Social History Tobacco Use Types Packs/Day Years [...] documented as of this encounter Care Teams Geriatric Social Worker Relationship Specialty Start Date End Date Josephine Tompkins PA-C PCP - General Physician Marketing Budget Analyst 11/24/18 Josephine Tompkins PA-C [address] [facility] [place] [address] Assigned PCP 11/03/18 05/24/21 Josephine Tompkins PA-C [address] [facility] [address] Assigned PCP 05/25/21 02/11/24 Mercedes Bautista PA-C [address] [place] [address] Assigned PCP 02/12/24 documented as of this encounter
--- OUTSIDE RECORDS SUMMARY | 2024-09-09 21:56 | XMS_ITS | Encounter Summary ---
Author Organization [place] Address [facility] [place] [address] Care Team Providers Care Type Caster Name Role Phone Josephine Tompkins PA-C Primary Care Provider Josephine Tompkins PA-C Unavailable Josephine Tompkins PA-C Unavailable Mercedes Bautista PA-C Unavailable Encounter Details Date Type Department Care Team (Late st Contact Info) Description 05/03/2019 MyC Medical Advice [address] [phone] Josephine Tompkins PA-C [facility] [address] [place] [phone] Social History Tobacco Use Types Packs/Day Years [...] documented as of this encounter Care Teams Type Caster Relationship Specialty Start Date End Date Josephine Tompkins PA-C PCP - General Physician Machining Engineer 11/24/18 Josephine Tompkins PA-C [address] [place] [address] Assigned PCP 11/03/18 05/24/21 Josephine Tompkins PA-C [address] [place] [address] Assigned PCP 05/25/21 02/11/24 Mercedes Bautista PA-C [address] [place] [address] Assigned PCP 02/12/24 documented as of this encounter
--- OUTSIDE RECORDS SUMMARY | 2024-09-09 21:56 | XMS_ITS | Encounter Summary ---
Author Organization [place] Address [facility] [place] [address] Care Team Providers Care Budget Examiner Name Role Phone Josephine Tompkins PA-C Primary Care Provider Josephine Tompkins PA-C Unavailable [phone] Josephine Tompkins PA-C Unavailable Mercedes Bautista PA-C Unavailable Encounter Details Date Type Department Care Team (Late st Contact Info) Description 07/17/2019 MyC Medical Advice [address] [address] Josephine Tompkins PA-C [address] [facility] [address] [place] [id number] Contraception (Primary Dx) Social History Tobacco Use Types [...] as of this encounter Visit Diagnoses Diagnosis Contraception- Primary Unspecified contraceptive management documented in this encounter Additional Health Concerns Assessment Noted Time PHQ-9 Depression Total Score: 4 04/03/20 19 12:02 PM CDT documented as of this encounter Care Teams Budget Examiner Relationship Specialty Start Date End Date Josephine Tompkins PA-C PCP - General Physician Engineering Illustrator 11/24/18 Josephine Tompkins PA-C [address] [facility] [address] [place], [place] [address] Assigned PCP 11/03/18 05/24/21 Josephine Tompkins PA-C [address] [facility] [place] [address] Assigned PCP 05/25/21 02/11/24 Mercedes Bautista PA-C [address] [place] [address] Assigned PCP 02/12/24 documented as of this encounter
--- OUTSIDE RECORDS SUMMARY | 2024-09-09 21:56 | XMS_ITS | Encounter Summary ---
Author Organization [place] Address [facility] [place] [address] Care Team Providers Care Client Development Director Name Role Phone Josephine Tompkins PA-C Primary Care Provider [phone] Josephine Tompkins PA-C Unavailable [phone] Josephine Tompkins PA-C Unavailable Mercedes Bautista PA-C Unavailable Encounter Details Date Type Department Care Team (Late st Contact Info) Description 08/10/2019 MyC Medical Advice [address] [address] Josephine Tompkins PA-C [address] [facility] [address] [place] [id number] Social History Tobacco Use Types Packs/Day Years [...] documented as of this encounter Care Teams Client Development Director Relationship Specialty Start Date End Date Josephine Tompkins PA-C PCP - General Physician Sample Washer 11/24/18 Josephine Tompkins PA-C [address] [facility] [place] [address] Assigned PCP 11/03/18 05/24/21 Josephine Tompkins PA-C [address] [facility] [place] [address] Assigned PCP 05/25/21 02/11/24 Mercedes Bautista PA-C [address] [place] [address] Assigned PCP 02/12/24 documented as of this encounter
--- OUTSIDE RECORDS SUMMARY | 2024-09-09 21:56 | XMS_ITS | Encounter Summary ---
Author Organization [place] Address [facility] [place] [address] Care Team Providers Care Business Writer Name Role Phone Josephine Tompkins PA-C Primary Care Provider Josephine Tompkins PA-C Unavailable Josephine Tompkins PA-C Unavailable [phone] Mercedes Bautista PA-C Unavailable Encounter Details Date Type Department Care Team (Late st Contact Info) Description 07/17/2019 MyC Medical Advice [address] [address] Josephine Tompkins PA-C [address] [facility] [address] [place] [phone] Social History Tobacco Use Types Packs/Day Years [...] documented as of this encounter Care Teams Business Writer Relationship Specialty Start Date End Date Josephine Tompkins PA-C PCP - General Physician Aircraft Pneudraulic Systems Mechanic 11/24/18 Josephine Tompkins PA-C [address] [facility] [place] [address] Assigned PCP 11/03/18 05/24/21 Josephine Tompkins PA-C [address] [facility] [place] [address] Assigned PCP 05/25/21 02/11/24 Mercedes Bautista PA-C [address] [place] [address] Assigned PCP 02/12/24 documented as of this encounter
--- OUTSIDE RECORDS SUMMARY | 2024-09-09 21:56 | XMS_ITS | Encounter Summary ---
Author Organization [place] Address [facility]0 [place] [address] Care Team Providers Care Construction Project Administrator Name Role Phone Josephine Tompkins PA-C Primary Care Provider Josephine Tompkins PA-C Unavailable Josephine Tompkins PA-C Unavailable [phone] Mercedes Bautista PA-C Unavailable Encounter Details Date Type Department Care Team (Late st Contact Info) Description 04/04/2019 MyC Medical Advice [address] [address] Josephine Tompkins PA-C [address] [facility] [address] [place] [phone] Social History Tobacco Use Types Packs/Day Years [...] documented as of this encounter Care Teams Construction Project Administrator Relationship Specialty Start Date End Date Josephine Tompkins PA-C PCP - General Physician Commercial Litigation Associate 11/24/18 Josephine Tompkins PA-C [address] [facility] [place] [address] Assigned PCP 11/03/18 05/24/21 Josephine Tompkins PA-C [address] [facility] [place] [address] Assigned PCP 05/25/21 02/11/24 Mercedes Bautista PA-C [address] [place] [address] Assigned PCP 02/12/24 documented as of this encounter
--- OUTSIDE RECORDS SUMMARY | 2024-09-09 21:56 | XMS_ITS | Encounter Summary ---
Author Organization [place] Address [facility] [place] [address] Care Team Providers Care Parts Facilitator Name Role Phone Josephine Tompkins PA-C Primary Care Provider Josephine Tompkins PA-C Unavailable [phone] Josephine Tompkins PA-C Unavailable [phone] Mercedes Bautista PA-C Unavailable Encounter Details Date Type Department Care Team (Late st Contact Info) Description 07/28/2019 MyC Medical Advice [address] [address] Josephine Tompkins PA-C [address] [facility] [address] [place] [id number] Social History Tobacco Use Types Packs/Day Years [...] documented as of this encounter Care Teams Parts Facilitator Relationship Specialty Start Date End Date Josephine Tompkins PA-C PCP - General Physician Mailing Manager 11/24/18 Josephine Tompkins PA-C [address] [place] [address] Assigned PCP 11/03/18 05/24/21 Josephine Tompkins PA-C [address] [place] [address] Assigned PCP 05/25/21 02/11/24 Mercedes Bautista PA-C [address] [place] [address] Assigned PCP 02/12/24 documented as of this encounter
--- OUTSIDE RECORDS SUMMARY | 2024-09-09 21:56 | XMS_ITS | Encounter Summary ---
Author Organization [place] Address [facility] [place] [address] Care Team Providers Care Emergency Department Coordinator Name Role Phone Josephine Tompkins PA-C Primary Care Provider Josephine Tompkins PA-C Unavailable Josephine Tompkins PA-C Unavailable Mercedes Bautista PA-C Unavailable Encounter Details Date Type Department Care Team (Late st Contact Info) Description 06/27/2019 MyC Medical Advice [address] [address] Josephine Tompikns PA-C [address] [facility] [address] [place] [phone] Social History Tobacco Use Types Packs/Day Years [...] Telephone Encounter - Redd Mendoza RN - 06/28/2019 10:14 AM CDT Responded via [employer]. Redd Mendoza, RN, BSN documented in this encounter Plan of Treatment Not on file documented as of this encounter Visit Diagnoses Not on filedocumented in this encounter Additional Health Concerns Assessment Noted Time PHQ-9 Depression Total Score: 4 04/03/20 19 12:02 PM CDT documented as of this encounter Care Teams Emergency Department Coordinator Relationship Specialty Start Date End Date Josephine Tompkins PA-C PCP - General Physician Bird Sitter 11/24/18 Josephine Tompkins PA-C [address] [facility] [place] [address] Assigned PCP 11/03/18 05/24/21 Josephine Tompkins PA-C [address] [facility] [place] [address] Assigned PCP 05/25/21 02/11/24 Mercedes Bautista PA-C [address] [place] [address] Assigned PCP 02/12/24 documented as of this encounter
--- OUTSIDE RECORDS SUMMARY | 2024-09-09 21:56 | XMS_ITS | Encounter Summary ---
Author Organization [place] Address [facility]0 [place] [address] Care Team Providers Care Vp Securities Name Role Phone Josephine Tompkins PA-C Primary Care Provider [phone] Josephine Tompkins PA-C Unavailable Josephine Tompkins PA-C Unavailable [phone] Mercedes Bautista PA-C Unavailable Encounter Details Date Type Department Care Team (Late st Contact Info) Description 08/14/2019 MyC Medical Advice [address] [address] Josephine Tompkins PA-C [address] [facility] [address] [place] [phone] Social History Tobacco Use Types Packs/Day Years [...] documented as of this encounter Care Teams Vp Securities Relationship Specialty Start Date End Date Josephine Tompkins PA-C PCP - General Physician Hat Binder 11/24/18 Josephine Tompkins PA-C [address] [facility] [place] [address] Assigned PCP 11/03/18 05/24/21 Josephine Tompkins PA-C [address] [facility] [place] [address] Assigned PCP 05/25/21 02/11/24 Mercedes Bautista PA-C [address] [place] [address] Assigned PCP 02/12/24 documented as of this encounter
[2024-09-09] MEDS: LORazepam 1 MG TABLET PO (21:59)
[2024-09-09] MEDS: LIDOCAINE 5% PATCH 1 PATCH TRANSDERMA (21:59)
== END 2024-09-09 23:05 | disposition home or self-care (01) ==
PROVIDERS: Emergency Provider Family Medicine
DX: R07.89 Other chest pain (principal); F41.9 Anxiety disorder, unspecified; J06.9 Acute upper respiratory infection, unspecified
CPT/HCPCS: 71046; 99284; A9270